=== PATIENT | female | born 1995 | race Caucasian/White ===

== ENCOUNTER 2018-05-11 22:59 | Outpatient (REF) | payer MEDICAID, SELFPAY ==
[2018-05-12 01:53] LABS: TSH (W/Ref FT4) 2.01 uIU/mL (0.358-3.74)
[2018-05-13 11:01] LABS: IgA 193 mg/dL (85-499); Interpretation SEE COMMENTS; Tissue Transglutaminase IgA <1.2 U/mL (<4.0)
== END 2018-05-11 23:19 ==
LOC: NCHCN 22:59
PROVIDERS: PCP Nurse Practitioner Family; Visit Provider Family Medicine
DX: K90.0 Celiac disease (principal); Q90.9 Down syndrome, unspecified
CPT/HCPCS: 82784; 83516; 84443

== ENCOUNTER 2020-04-09 21:27 | Outpatient (REF) | payer MEDICAID, SELFPAY ==
[2020-04-09 21:05] LABS: HGB 13.4 g/dL (11.2-15.7); MCH 34.2 pg (27.0-33.0); MCHC 32.7 % (32.0-36.0); MCV 104.6 fL (80-95); MPV 10.8 fL (8.0-11.0); Platelet Count 218 10^3/uL (130-400); RBC 3.92 10^6/uL (3.93-5.22); RDW 13.2 % (11.7-14.6); RDW-SD 50.4 fL; WBC 6.48 10^3/uL (4.4-10.8)
[2020-04-09 21:19] LABS: TSH 2.55 uIU/mL (0.36-3.74)
[2020-04-11 04:47] LABS: Vitamin D 25 Total 71.5 ng/ml (30-100)
== END 2020-04-09 21:47 ==
LOC: NCHCN 21:27
PROVIDERS: PCP Family Medicine; Visit Provider Family Medicine
DX: Z00.00 Encounter for general adult medical examination without abnormal findings (principal); Q90.9 Down syndrome, unspecified
CPT/HCPCS: 82306; 85027; 84443

== ENCOUNTER 2021-02-17 12:28 | Outpatient (REF) | payer MEDICAID, SELFPAY ==
[2021-02-17 14:23] LABS: Abs Immature Grans 0.02 10^3/uL (0.0-0.06); Absolute Basophil Count 0.06 10^3/uL (0.0-0.2); Absolute Eosinophil Count 0.02 10^3/uL (0.0-0.7); Absolute Lymphocyte Count 2.26 10^3/uL (1.2-3.4); Absolute Monocyte Count 0.39 10^3/uL (0.1-0.8); Absolute Neutrophil Count 2.65 10^3/uL (1.2-6.7); Basophils % 1.1; Eosinophils % 0.4; HCT 43.8 % (36.0-46.0); HGB 14.9 g/dL (11.2-15.7); Immature Grans % 0.4; Lymphocytes % 41.9; MCH 34.7 pg (27.0-33.0); MCV 102.1 fL (80-95); MPV 10.5 fL (8.0-11.0); Monocytes % 7.2; Nucleated RBC 0 %; Platelet Count 217 10^3/uL (130-400); RBC 4.29 10^6/uL (3.93-5.22); RDW 13.3 % (11.7-14.6); RDW-SD 50.8 fL
[2021-02-17 14:45] LABS: ALT 34 U/L (14-59); AST 22 U/L (15-37); Alkaline Phosphatase 106 U/L (46-116); Anion Gap 7.1 mmol/L (3-11); BUN 16 mg/dL (7-18); Bilirubin, Total 0.4 mg/dL (0.2-1.0); CO2 30.9 mmol/L (21.0-32.0); CREATININE 0.8 mg/dL (0.55-1.02); Calcium 9.2 mg/dL (8.5-10.1); Chloride 104 mmol/L (98-107); Glucose 100 mg/dL (74-106); Potassium 4.8 mmol/L (3.5-5.1); Sodium 142 mmol/L (136-145); Total Protein 7.8 g/dL (6.4-8.2)
== END 2021-02-17 12:29 | disposition home or self-care (01) ==
LOC: NCHCN 12:28
PROVIDERS: PCP Family Medicine; Visit Provider Nurse Practitioner Family
DX: R10.32 Left lower quadrant pain (principal); R35.0 Frequency of micturition
CPT/HCPCS: 80053; 85025; 87480; 87510; 87660

== ENCOUNTER 2022-04-20 15:16 | Outpatient (REF) | payer MEDICAID, SELFPAY ==
[2022-04-22 11:19] LABS: COVID-19 RT-PCR UVMMC Result Negative (Negative)
== END 2022-04-20 15:17 | disposition home or self-care (01) ==
LOC: NCHCN 15:16
PROVIDERS: PCP Family Medicine; Visit Provider Family Medicine
DX: Z20.822 Contact with and (suspected) exposure to COVID-19 (principal); J06.9 Acute upper respiratory infection, unspecified
CPT/HCPCS: U0003

== ENCOUNTER 2022-05-12 18:15 | Outpatient (REF) | payer MEDICAID, SELFPAY | END 2022-05-12 18:16 | disposition home or self-care (01) | LOC: NCHCN 18:15 | PROVIDERS: PCP Family Medicine; Visit Provider Nurse Practitioner Family | DX: R30.0 Dysuria (principal) | CPT/HCPCS: 87480; 87510; 87660 ==

== ENCOUNTER 2022-05-25 15:02 | Outpatient (REF) | payer MEDICAID, SELFPAY ==
[2022-05-25 20:11] LABS: HGB 13.7 g/dL (11.2-15.7); MCH 34.8 pg (27.0-33.0); MCHC 33.4 % (32.0-36.0); MCV 104 fL (80-95); MPV 11.3 fL (8.0-11.0); Platelet Count 203 10^3/uL (130-400); RBC 3.94 10^6/uL (3.93-5.22); RDW 12.7 % (11.7-14.6); RDW-SD 48.8 fL; WBC 6.27 10^3/uL (4.4-10.8)
[2022-05-25 20:38] LABS: TSH 1.69 uIU/mL (0.36-3.74)
== END 2022-05-25 15:03 | disposition home or self-care (01) ==
LOC: NCHCN 15:02
PROVIDERS: PCP Family Medicine; Visit Provider Family Medicine
DX: R53.83 Other fatigue (principal)
CPT/HCPCS: 82306; 85027; 84443

== ENCOUNTER 2023-10-28 10:26 | Outpatient (REF) | payer MEDICAID, SELFPAY ==
--- OUTSIDE RECORDS SUMMARY | 2023-10-28 10:30 | XMS_ITS | CCD ---
Author Name Unknown Address [address] [place] [address] [phone] Organization Unknown Address [address] [place] [address] [phone] Care Team Providers Care Recreational Director Name Role Phone EILEEN VALDEZ Attending Physician [phone] Vital Signs Unknown or Not Available. Allergies Allergy Code Allergy Type Reaction Status PATIENT OR PATIENT FAMILY DE NIES ANY ALLERGIES {Clinical monitoring unavailable} 0 Drug allergy Active Procedures Unknown or Not Available. History of Immunizations Unknown or Not Available. Problems Unknown or Not Available. Results Unknown or Not Available. Active Medications Unknown or Not Available. Medications Administered During Visit Unknown or Not Available. Encounters Encounter Diagnosis Diagnosis Code Start Date Arthralgia of the ankle and/or foot [id number] 10/12/2022 Social History Smoking Status Code Start Date End Date Never smoker [id number] Patient Decision Aids Unknown or Not Available. Discharge Instructions You were admitted to [facility] on 10/12/2022 13:44 with a principal diagnosis of Pain in left ankle and joints of left foot You were discharged from [facility] on 10/12/2022 13:44 Should you have any questions prior to discharge, please contact a member of your healthcare team. If you have left the hospital and have any questions, please contact your primary care physician. Chief Complaint and Reason For Visit Unknown or Not Available. Function Status Unknown or Not Available. Plan of Care Unknown or Not Available. Referral/Transition of Care Unknown or Not Available.
--- OUTSIDE RECORDS SUMMARY | 2023-10-28 10:30 | XMS_ITS | CCD ---
Author Name Unknown Address [address] [place] [address] [phone] Organization Unknown Address [address] [place] [address] [phone] Care Team Providers Care Bean Picker Machine Operator Name Role Phone COURTNEY ELIEEN Monica Attending Physician [phone] Vital Signs Unknown or Not Available. Allergies [...] Encounters Encounter Diagnosis Diagnosis Code Start Date Sprain of unspecified ligame nt of left ankle, subsequent encounter [id number] 11/10/2022 Social History Smoking Status Code Start Date End Date Never smoker [id number] Patient Decision Aids Unknown or Not Available. Discharge Instructions You were admitted to [facility] on 11/10/2022 08:32 with a principal diagnosis of Sprain of unspecified ligament of left ankle, subsequent encounter You were discharged from [facility] on 12/21/2022 14:09 Should you have any questions prior to [...]
--- OUTSIDE RECORDS SUMMARY | 2023-10-28 10:30 | XMS_ITS | CCD ---
Author Name Unknown Address [address] [place] [address] [phone] Organization Unknown Address [address] [place] [address] [id number] Care Team Providers Care Weeder Name Role Phone EILEEN VALDEZ Attending Physician [phone] Vital Signs Unknown or Not Available. Allergies [...] Date Arthralgia of the ankle and/or foot [id number] 11/03/2022 Social History Smoking Status Code Start Date End Date Never smoker [id number] Patient Decision Aids Unknown or Not Available. Discharge Instructions You were admitted to [facility] on 11/03/2022 13:44 with a principal diagnosis of Pain in left ankle and joints of left foot You were discharged from [facility] on 11/03/2022 11:43 Should you have any questions prior to [...]
== END 2023-10-28 10:27 | disposition home or self-care (01) ==
LOC: NCHCN 10:26
PROVIDERS: PCP Family Medicine; Referring Provider Family Medicine; Visit Provider Family Medicine
DX: R30.0 Dysuria (principal)
CPT/HCPCS: 87480; 87510; 87660

== ENCOUNTER 2025-01-02 14:14 | Outpatient (REF) | payer MEDICAID, SELFPAY ==
[2025-01-02 21:25] LABS: HCT 41.1 % (36.0-46.0); HGB 13.7 g/dL (11.2-15.7); MCH 34.7 pg (27.0-33.0); MCHC 33.3 % (32.0-36.0); MCV 104 fL (80-95); MPV 10.8 fL (8.0-11.0); Platelet Count 215 10^3/uL (130-400); RBC 3.95 10^6/uL (3.93-5.22); RDW 12.8 % (11.7-14.6); RDW-SD 48.9 fL; WBC 5.45 10^3/uL (4.4-10.8)
[2025-01-02 21:44] LABS: ALT 26 U/L (14-59); AST 28 U/L (15-37); Albumin 3.4 g/dL (3.4-5.0); Alkaline Phosphatase 68 U/L (46-116); Anion Gap 8.4 mmol/L (3-11); BUN 18 mg/dL (7-18); Bilirubin, Total 0.6 mg/dL (0.2-1.0); CO2 26.6 mmol/L (21.0-32.0); CREATININE 0.8 mg/dL (0.55-1.02); Calcium 8.6 mg/dL (8.5-10.1); Chloride 105 mmol/L (98-107); Estimated GFR 102.86 (mL/min/1.73m2); Glucose 92 mg/dL (74-106); Potassium 4.1 mmol/L (3.5-5.1); Sodium 140 mmol/L (136-145); TSH (W/Ref FT4) 2.28 uIU/mL (0.36-3.74); Total Protein 7.3 g/dL (6.4-8.2)
== END 2025-01-02 14:15 | disposition home or self-care (01) ==
LOC: NCHCN 14:14
PROVIDERS: PCP Family Medicine; Visit Provider Family Medicine
DX: Q90.9 Down syndrome, unspecified (principal); Z00.00 Encounter for general adult medical examination without abnormal findings
CPT/HCPCS: 80053; 85027; 84443